=== PATIENT | female | born 1940 | race Caucasian/White ===

== ENCOUNTER → 2022-02-02 | Day surgery (SDC) | payer MEDICARE, BC ==
[~2022-02-02] MED LIST: ACTIVE-Q200 MG PO; ALPRAZOLAM0.5 MG PO; AVAPRO300 MG PO; BETAPACE80 MG PO; CRESTOR 10 MG T10 MG PO; DIOVAN80 MG PO; ECOTRIN81 MG PO; ELIQUIS2.5 MG PO; ESTRACE1 MG PO; IPRATROPIUM BRO15 ML; IRBESARTAN300 MG PO; KEFLEX CAP 500500 MG PO; MACRODANTIN50 MG PO; PROAIR HFA8.5 GM INH; PROLOPRIM 100100 MG PO; SERTRALINE HCL50 MG PO; SOTALOL AF80 MG PO; SYNTHROID112 MCG PO; VALSARTAN80 MG PO; VITAMIN E400 UNI2 PO
== END | disposition home or self-care (01) ==
LOC: OR 07:03
DX: C34.92 Malignant neoplasm of unspecified part of left bronchus or lung (principal); I48.0 Paroxysmal atrial fibrillation; E78.00 Pure hypercholesterolemia, unspecified; I10 Essential (primary) hypertension; E03.9 Hypothyroidism, unspecified; I25.10 Atherosclerotic heart disease of native coronary artery without angina pectoris; F41.9 Anxiety disorder, unspecified; D64.9 Anemia, unspecified; Z79.01 Long term (current) use of anticoagulants; Z79.82 Long term (current) use of aspirin; Z79.899 Other long term (current) drug therapy
CPT/HCPCS: 77001; C1769; C1788; J0690; J1642; J2001; J2405; J2704; J3010; J7040